=== PATIENT | male | born 1960 | race Caucasian/White ===

== ENCOUNTER 2023-02-24 09:47 | Inpatient (IN) | payer MEDICARE ==
[~2023-02-24] VITALS: Ht 170.2 cm; Wt 90.9 kg
[2023-02-24] MEDS ORDERED: ACET-897 PO (10:02)
[2023-02-24 11:12] LABS: BASO # 0.1 10^3/uL (0.0-0.2); BASO % 0.6 % (0.0-1.0); EOS # 0.2 10^3/uL (0.0-0.5); EOS % 2.7 % (0.0-3.0); HEMATOCRIT 29.5 % (42.0-52.0); HEMOGLOBIN 8.3 g/dl (13.5-17.5); LYMPH # 1.1 10^3/uL (1.5-5.0); LYMPH % 12.3 % (24.0-44.0); MEAN CORPUSCULAR HEMOGLOBIN 21.1 pg (27.0-33.0); MEAN CORPUSCULAR HGB CONC 28.1 g/dl (32.0-36.5); MEAN CORPUSCULAR VOLUME 75.1 fl (80.0-96.0); MONO # 0.5 10^3/uL (0.0-0.8); NEUTROPHILS # 6.8 10^3/uL (1.5-8.5); NEUTROPHILS % 78.2 % (36.0-66.0); PLATELET COUNT, AUTOMATED 349 10^3/uL (150-450); RED BLOOD COUNT 3.93 10^6/uL (4.30-6.10); WHITE BLOOD COUNT 8.6 10^3/uL (4.0-10.0)
[2023-02-24 11:20] LABS: ERYTHROCYTE SEDIMENTATION RATE > 130 mm/hr (0-20)
[2023-02-24] MEDS: POTASSIUM CHLORIDE 10MEQ SR TABLET PO ONE (11:26)
[2023-02-24] MEDS: KCL 10MEQ/100ML SWI (KRUN) 10 MEQ in IV 1 EA IV ONE (11:26)
[2023-02-24 11:28] LABS: INR 1.24; PROTHROMBIN TIME 15.2 SECONDS (12.5-14.5)
[2023-02-24 11:29] LABS: PARTIAL THROMBOPLASTIN TIME 32.4 SECONDS (24.8-34.2)
[2023-02-24 11:35] LABS: C REACTIVE PROTEIN QUANTITATIV 7.6 MG/DL (<1.0)
[2023-02-24 11:37] LABS: ALBUMIN 2.3 G/DL (3.2-5.2); BILIRUBIN,DIRECT 0.3 MG/DL (<0.4); BILIRUBIN,TOTAL 0.5 MG/DL (0.3-1.2); TOTAL PROTEIN 6.8 G/DL (5.7-8.2)
[2023-02-24 11:54] LABS: MAGNESIUM LEVEL 1.9 MG/DL (1.8-2.4)
[2023-02-24 11:56] LABS: RSV AMPLIFICATION NEGATIVE (NEGATIVE)
[2023-02-24] MEDS ORDERED: VANCOMYCIN HCL 1,750 MG in IV FLUID PLACE HOLDER 1 EA IV ONE (12:05)
[2023-02-24] MEDS: ONDANSETRON 4MG 2ML VIAL IV ONE (12:10)
[2023-02-24] MEDS: MORPHINE 4 MG/ML 1ML VIAL IV ONE ×2 (12:10→14:06)
[2023-02-24] MEDS ORDERED: MED REC IN PROGRESS XX SCH (12:30)
[2023-02-24] MEDS: VANCOMYCIN HCL 1,000 MG, VIAL MATE ADAPTER 1 EACH in D5W 250 ML IV ONE (12:51)
[2023-02-24] MEDS: LIDOCAINE 2% 5ML JELLY UROJET TOP ONE (13:46)
[2023-02-24] MEDS ORDERED: HOME MED LIST COMPLETE! XX SCH (13:55)
[2023-02-24] MEDS: VANCOMYCIN HCL 750 MG, VIAL MATE ADAPTER 1 EACH in D5W 250 ML IV ONE (13:55)
[2023-02-24] MEDS ORDERED: ISOVUE-370 76% 100ML VIAL As Ordered ONE (13:56)
[2023-02-24] MEDS ORDERED: HEPARIN SOD (PORCINE) 5000UNITS/ML 1ML VIAL/SYRINGE SC SCH (17:50)
[2023-02-24] MEDS ORDERED: MOM 30ML SUSPENSION UDC PO PRN (17:50)
[2023-02-24] MEDS ORDERED: MAALOX 30 ML SUSP *UDC PO PRN (17:50)
[2023-02-24] MEDS ORDERED: DEXTROSE 50% 50ML SYRINGE IV PRN (17:55)
[2023-02-24] MEDS ORDERED: GLUCOSE 4GM CHEW TABLET PO PRN (17:55)
[2023-02-24] MEDS ORDERED: GLUCAGON INJ 1MG VIAL SC PRN (17:55)
[2023-02-24 18:59] LABS: HEMOGLOBIN A1c 5.9 % (4.0-6.0)
[2023-02-24] MEDS: NS 1,000 ML IV ONE (19:13)
[2023-02-24 19:15] LABS: BLOOD UREA NITROGEN 10 MG/DL (9-23); CALCIUM LEVEL 7.9 MG/DL (8.3-10.6); CARBON DIOXIDE LEVEL 35 MMOL/L (20-31); CHLORIDE LEVEL 101 MMOL/L (98-107); CHOLESTEROL LEVEL 85 MG/DL (<200); CHOLESTEROL RISK RATIO 2.34 (<5); CREATININE FOR GFR 0.57 MG/DL (0.70-1.30); GLOMERULAR FILTRATION RATE > 60.0 (>49); GLUCOSE, FASTING 124 MG/DL (74-106); HDL CHOLESTEROL 36.2 MG/DL (>40); LDL CHOLESTEROL 35.2 MG/DL (<100); NON-HDL-C 48.8 MG/DL; POTASSIUM SERUM 2.8 MMOL/L (3.5-5.1); SODIUM LEVEL 141 MMOL/L (136-145); TRIGLYCERIDES LEVEL 68 MG/DL (<150)
[2023-02-24] MEDS: POTASSIUM CHLORIDE 10% LIQ 20MEQ/15ML UDC PO ONE (20:05)
[2023-02-24] MEDS: INSULIN LISPRO (NovoLOG) PER UNIT SC SCH (20:38)
[2023-02-24] MEDS: CEFEPIME HCL 2 GM in D5W MINI-BAG PLUS 50 ML IV SCH (20:39)
[2023-02-24] MEDS ORDERED: PROHANCE 279.3MG/ML 5ML VIAL As Ordered ONE (22:53)
[2023-02-24] MEDS ORDERED: PROHANCE 279.3MG/ML 15ML VIAL As Ordered ONE (22:53)
[2023-02-25] MEDS: KCL 10MEQ/100ML SWI (KRUN) 10 MEQ in IV 1 EA IV SCH (00:12)
[2023-02-25] MEDS: VANCOMYCIN HCL 750 MG, VIAL MATE ADAPTER 1 EACH in D5W 250 ML IV SCH ×2 (00:38→01:32)
[2023-02-25] MEDS: INSULIN LISPRO (NovoLOG) PER UNIT SC SCH (07:30)
[2023-02-25] MEDS: HEPARIN SOD (PORCINE) 5000UNITS/ML 1ML VIAL/SYRINGE SC SCH (07:40)
[2023-02-25 08:07] LABS: BASO # 0.1 10^3/uL (0.0-0.2); BASO % 0.5 % (0.0-1.0); EOS # 0.2 10^3/uL (0.0-0.5); EOS % 2.1 % (0.0-3.0); HEMATOCRIT 24.6 % (42.0-52.0); HEMOGLOBIN 7.1 g/dl (13.5-17.5); LYMPH # 1.5 10^3/uL (1.5-5.0); LYMPH % 13.7 % (24.0-44.0); MEAN CORPUSCULAR HEMOGLOBIN 21.6 pg (27.0-33.0); MEAN CORPUSCULAR HGB CONC 28.9 g/dl (32.0-36.5); MONO # 0.6 10^3/uL (0.0-0.8); MONO % 5.7 % (2.0-8.0); NEUTROPHILS # 8.6 10^3/uL (1.5-8.5); NEUTROPHILS % 77.6 % (36.0-66.0); PLATELET COUNT, AUTOMATED 319 10^3/uL (150-450); RED BLOOD COUNT 3.28 10^6/uL (4.30-6.10); WHITE BLOOD COUNT 11.1 10^3/uL (4.0-10.0)
[2023-02-25 08:33] LABS: BLOOD UREA NITROGEN 10 MG/DL (9-23); CALCIUM LEVEL 7.5 MG/DL (8.3-10.6); CARBON DIOXIDE LEVEL 33 MMOL/L (20-31); CHLORIDE LEVEL 101 MMOL/L (98-107); CREATININE FOR GFR 0.69 MG/DL (0.70-1.30); GLOMERULAR FILTRATION RATE > 60.0 (>49); GLUCOSE, FASTING 101 MG/DL (74-106); IRON (FE) 16 UG/DL (65-175); PERCENT SATURATION 5.7 % (19.7-50.0); POTASSIUM SERUM 3.3 MMOL/L (3.5-5.1); SODIUM LEVEL 138 MMOL/L (136-145); TOTAL IRON BINDING CAPACITY 282 UG/DL (250-425)
[2023-02-25 08:35] LABS: TOTAL 25(OH) VITAMIN D 21.3 NG/ML (20.0-100.0); VITAMIN B12 LEVEL 658 PG/ML (211-911)
[2023-02-25] MEDS: ACETAMINOPHEN TAB 650MG DOSE (2X325MG) PO PRN (08:55)
[2023-02-25] MEDS: PERCOCET 5MG/325MG TAB PO PRN (11:25)
[2023-02-25 15:35] VITALS: BP 148/94; TEMP 98.8; O2SAT 97
[2023-02-25] MEDS: MORPHINE 2 MG/ML 1ML VIAL IV PRN (16:57)
[2023-02-25 19:46] LABS: HEMATOCRIT 26.2 % (42.0-52.0); HEMOGLOBIN 7.4 g/dl (13.5-17.5)
[2023-02-25 20:53] VITALS: BP 133/89; TEMP 98.2; O2SAT 95
[2023-02-26] MEDS: HYDROMORPHONE HCL 0.5 MG/ 0.5 ML SYRINGE IV PRN (02:07)
[2023-02-26 06:21] VITALS: BP 143/81; TEMP 98.1; O2SAT 93
[2023-02-26 06:38] LABS: BASO # 0.1 10^3/uL (0.0-0.2); BASO % 1.3 % (0.0-1.0); EOS # 0.5 10^3/uL (0.0-0.5); EOS % 5.9 % (0.0-3.0); HEMATOCRIT 25.4 % (42.0-52.0); HEMOGLOBIN 7.3 g/dl (13.5-17.5); LYMPH # 2.2 10^3/uL (1.5-5.0); LYMPH % 28.3 % (24.0-44.0); MEAN CORPUSCULAR HEMOGLOBIN 21.8 pg (27.0-33.0); MEAN CORPUSCULAR HGB CONC 28.7 g/dl (32.0-36.5); MEAN CORPUSCULAR VOLUME 75.8 fl (80.0-96.0); MONO # 0.5 10^3/uL (0.0-0.8); NEUTROPHILS # 4.4 10^3/uL (1.5-8.5); NEUTROPHILS % 57.2 % (36.0-66.0); PLATELET COUNT, AUTOMATED 283 10^3/uL (150-450); RED BLOOD COUNT 3.35 10^6/uL (4.30-6.10); WHITE BLOOD COUNT 7.7 10^3/uL (4.0-10.0)
[2023-02-26 07:01] LABS: BLOOD UREA NITROGEN 19 MG/DL (9-23); CALCIUM LEVEL 7.3 MG/DL (8.3-10.6); CARBON DIOXIDE LEVEL 31 MMOL/L (20-31); CHLORIDE LEVEL 102 MMOL/L (98-107); CREATININE FOR GFR 0.81 MG/DL (0.70-1.30); GLOMERULAR FILTRATION RATE > 60.0 (>49); GLUCOSE, FASTING 92 MG/DL (74-106); MAGNESIUM LEVEL 1.9 MG/DL (1.8-2.4); POTASSIUM SERUM 3.8 MMOL/L (3.5-5.1); SODIUM LEVEL 137 MMOL/L (136-145)
[2023-02-26] MEDS: FERRIC CARBOXYMALTOSE INJ 750 MG, VIAL MATE ADAPTER 1 EACH in NS 250 ML IV ONE (08:45)
[2023-02-26] MEDS: SENOKOT S TAB PO SCH (08:49)
[2023-02-26 13:13] LABS: HEMATOCRIT 26.3 % (42.0-52.0); HEMOGLOBIN 7.5 g/dl (13.5-17.5)
[2023-02-26 14:00] VITALS: BP 137/90; TEMP 98.2; O2SAT 97
[2023-02-26] MEDS: FERROUS SULFATE 325MG TAB PO SCH (16:52)
[2023-02-26] MEDS: VANCOMYCIN HCL 1,000 MG, VIAL MATE ADAPTER 1 EACH in D5W 250 ML IV SCH (16:55)
[2023-02-26 18:30] VITALS: BP 158/102; TEMP 98.2; O2SAT 97
[2023-02-27 04:17] VITALS: BP 159/101; TEMP 97.9; O2SAT 97
[2023-02-27 06:33] LABS: BASO # 0.1 10^3/uL (0.0-0.2); EOS # 0.5 10^3/uL (0.0-0.5); EOS % 4.7 % (0.0-3.0); HEMATOCRIT 26.8 % (42.0-52.0); HEMOGLOBIN 7.7 g/dl (13.5-17.5); LYMPH # 2.4 10^3/uL (1.5-5.0); LYMPH % 23.3 % (24.0-44.0); MEAN CORPUSCULAR HEMOGLOBIN 21.4 pg (27.0-33.0); MEAN CORPUSCULAR HGB CONC 28.7 g/dl (32.0-36.5); MEAN CORPUSCULAR VOLUME 74.7 fl (80.0-96.0); MONO # 0.5 10^3/uL (0.0-0.8); MONO % 4.3 % (2.0-8.0); NEUTROPHILS # 6.9 10^3/uL (1.5-8.5); NEUTROPHILS % 65.9 % (36.0-66.0); PLATELET COUNT, AUTOMATED 355 10^3/uL (150-450); RED BLOOD COUNT 3.59 10^6/uL (4.30-6.10); WHITE BLOOD COUNT 10.4 10^3/uL (4.0-10.0)
[2023-02-27 06:55] LABS: BLOOD UREA NITROGEN 17 MG/DL (9-23); CALCIUM LEVEL 7.6 MG/DL (8.3-10.6); CARBON DIOXIDE LEVEL 32 MMOL/L (20-31); CHLORIDE LEVEL 103 MMOL/L (98-107); CREATININE FOR GFR 0.77 MG/DL (0.70-1.30); GLOMERULAR FILTRATION RATE > 60.0 (>49); GLUCOSE, FASTING 108 MG/DL (74-106); MAGNESIUM LEVEL 1.8 MG/DL (1.8-2.4); POTASSIUM SERUM 3.8 MMOL/L (3.5-5.1); SODIUM LEVEL 138 MMOL/L (136-145)
[2023-02-27] MEDS: amLODIPine 5 MG TAB PO SCH (09:23)
[2023-02-27 14:00] VITALS: BP 150/105; TEMP 98.4; O2SAT 98
[2023-02-27 21:20] VITALS: BP 136/78; TEMP 99; O2SAT 96
[2023-02-28] MEDS: MORPHINE 2 MG/ML 1ML VIAL IV PRN (02:32)
[2023-02-28 06:00] VITALS: BP 121/73; TEMP 97.9; O2SAT 96
[2023-02-28 06:01] LABS: BASO # 0.1 10^3/uL (0.0-0.2); EOS # 0.6 10^3/uL (0.0-0.5); EOS % 6.8 % (0.0-3.0); HEMATOCRIT 28.2 % (42.0-52.0); HEMOGLOBIN 8.2 g/dl (13.5-17.5); LYMPH # 1.3 10^3/uL (1.5-5.0); MEAN CORPUSCULAR HGB CONC 29.1 g/dl (32.0-36.5); MEAN CORPUSCULAR VOLUME 75.6 fl (80.0-96.0); MONO # 0.4 10^3/uL (0.0-0.8); MONO % 4.8 % (2.0-8.0); NEUTROPHILS # 6.6 10^3/uL (1.5-8.5); NEUTROPHILS % 72.1 % (36.0-66.0); PLATELET COUNT, AUTOMATED 340 10^3/uL (150-450); RED BLOOD COUNT 3.73 10^6/uL (4.30-6.10); WHITE BLOOD COUNT 9.1 10^3/uL (4.0-10.0)
[2023-02-28 06:26] LABS: BLOOD UREA NITROGEN 14 MG/DL (9-23); CALCIUM LEVEL 7.4 MG/DL (8.3-10.6); CARBON DIOXIDE LEVEL 32 MMOL/L (20-31); CHLORIDE LEVEL 102 MMOL/L (98-107); CREATININE FOR GFR 0.67 MG/DL (0.70-1.30); GLOMERULAR FILTRATION RATE > 60.0 (>49); GLUCOSE, FASTING 114 MG/DL (74-106); MAGNESIUM LEVEL 1.8 MG/DL (1.8-2.4); POTASSIUM SERUM 3.5 MMOL/L (3.5-5.1); SODIUM LEVEL 139 MMOL/L (136-145)
[2023-02-28 14:00] VITALS: BP 142/90; TEMP 98.1; O2SAT 91
[2023-02-28 19:00] VITALS: BP 141/89; TEMP 98.2; O2SAT 98
[2023-02-28 20:15] VITALS: BP 123/65; TEMP 98.1; O2SAT 98
[2023-03-01 04:12] VITALS: BP 140/84; TEMP 98.2; O2SAT 97
[2023-03-01 06:05] LABS: BASO # 0.1 10^3/uL (0.0-0.2); BASO % 0.8 % (0.0-1.0); EOS # 0.7 10^3/uL (0.0-0.5); EOS % 7.8 % (0.0-3.0); HEMATOCRIT 31.4 % (42.0-52.0); HEMOGLOBIN 8.9 g/dl (13.5-17.5); LYMPH # 1.3 10^3/uL (1.5-5.0); LYMPH % 15.7 % (24.0-44.0); MEAN CORPUSCULAR HEMOGLOBIN 22.1 pg (27.0-33.0); MEAN CORPUSCULAR HGB CONC 28.3 g/dl (32.0-36.5); MEAN CORPUSCULAR VOLUME 78.1 fl (80.0-96.0); MONO # 0.5 10^3/uL (0.0-0.8); MONO % 5.5 % (2.0-8.0); NEUTROPHILS # 5.9 10^3/uL (1.5-8.5); NEUTROPHILS % 69.3 % (36.0-66.0); PLATELET COUNT, AUTOMATED 358 10^3/uL (150-450); RED BLOOD COUNT 4.02 10^6/uL (4.30-6.10); WHITE BLOOD COUNT 8.5 10^3/uL (4.0-10.0)
[2023-03-01 06:39] LABS: BLOOD UREA NITROGEN 9 MG/DL (9-23); CALCIUM LEVEL 7.7 MG/DL (8.3-10.6); CARBON DIOXIDE LEVEL 35 MMOL/L (20-31); CHLORIDE LEVEL 104 MMOL/L (98-107); CREATININE FOR GFR 0.54 MG/DL (0.70-1.30); GLOMERULAR FILTRATION RATE > 60.0 (>49); GLUCOSE, FASTING 101 MG/DL (74-106); MAGNESIUM LEVEL 1.9 MG/DL (1.8-2.4); POTASSIUM SERUM 3.8 MMOL/L (3.5-5.1); SODIUM LEVEL 143 MMOL/L (136-145)
[2023-03-01] MEDS: BISACODYL 5MG TAB PO SCH (09:00)
[2023-03-01] MEDS: MAGNESIUM CITRATE 300ML BTL PO ONE (09:45)
[2023-03-01 14:00] VITALS: BP 131/77; TEMP 98.1; O2SAT 98
[2023-03-01 21:28] VITALS: BP 128/80; TEMP 98.4; O2SAT 99
[2023-03-02 05:58] VITALS: BP 153/98; TEMP 98.2; O2SAT 98
[2023-03-02 06:16] LABS: BASO # 0.1 10^3/uL (0.0-0.2); BASO % 0.6 % (0.0-1.0); EOS # 0.6 10^3/uL (0.0-0.5); EOS % 7.1 % (0.0-3.0); HEMATOCRIT 31.1 % (42.0-52.0); HEMOGLOBIN 8.8 g/dl (13.5-17.5); LYMPH # 1.5 10^3/uL (1.5-5.0); LYMPH % 18.4 % (24.0-44.0); MEAN CORPUSCULAR HEMOGLOBIN 22.1 pg (27.0-33.0); MEAN CORPUSCULAR HGB CONC 28.3 g/dl (32.0-36.5); MEAN CORPUSCULAR VOLUME 77.9 fl (80.0-96.0); MONO # 0.5 10^3/uL (0.0-0.8); MONO % 5.9 % (2.0-8.0); NEUTROPHILS # 5.5 10^3/uL (1.5-8.5); NEUTROPHILS % 67.4 % (36.0-66.0); PLATELET COUNT, AUTOMATED 331 10^3/uL (150-450); RED BLOOD COUNT 3.99 10^6/uL (4.30-6.10); WHITE BLOOD COUNT 8.1 10^3/uL (4.0-10.0)
[2023-03-02 06:42] LABS: BLOOD UREA NITROGEN 8 MG/DL (9-23); CALCIUM LEVEL 7.6 MG/DL (8.3-10.6); CARBON DIOXIDE LEVEL 36 MMOL/L (20-31); CHLORIDE LEVEL 104 MMOL/L (98-107); CREATININE FOR GFR 0.64 MG/DL (0.70-1.30); GLOMERULAR FILTRATION RATE > 60.0 (>49); GLUCOSE, FASTING 100 MG/DL (74-106); POTASSIUM SERUM 3.8 MMOL/L (3.5-5.1); SODIUM LEVEL 143 MMOL/L (136-145)
[2023-03-02 14:00] VITALS: BP 138/84; TEMP 98.6; O2SAT 98
[2023-03-02 21:04] VITALS: BP 139/85; TEMP 98.2; O2SAT 99
[2023-03-02] MEDS: HYDROMORPHONE HCL 0.5 MG/ 0.5 ML SYRINGE IV PRN (21:50)
[2023-03-03 04:52] VITALS: BP 137/76; TEMP 98.8; O2SAT 100
[2023-03-03 14:00] VITALS: BP 149/90; TEMP 98.2; O2SAT 97
[2023-03-03 14:12] LABS: CHLAMYDIA DNA AMPLIFICATION NEGATIVE (NEGATIVE); GC DNA AMPLIFICATION NEGATIVE (NEGATIVE)
[2023-03-03 20:40] VITALS: BP 100/69; TEMP 98.1; O2SAT 97
[2023-03-04 06:00] VITALS: BP 128/78; TEMP 97.9; O2SAT 96
[2023-03-04 06:06] LABS: BASO % 0.5 % (0.0-1.0); EOS # 0.6 10^3/uL (0.0-0.5); EOS % 7.8 % (0.0-3.0); HEMATOCRIT 31.4 % (42.0-52.0); HEMOGLOBIN 8.8 g/dl (13.5-17.5); LYMPH # 1.5 10^3/uL (1.5-5.0); LYMPH % 18.3 % (24.0-44.0); MEAN CORPUSCULAR HEMOGLOBIN 22.4 pg (27.0-33.0); MEAN CORPUSCULAR VOLUME 79.9 fl (80.0-96.0); MONO # 0.6 10^3/uL (0.0-0.8); MONO % 6.8 % (2.0-8.0); NEUTROPHILS # 5.4 10^3/uL (1.5-8.5); NEUTROPHILS % 66.1 % (36.0-66.0); PLATELET COUNT, AUTOMATED 299 10^3/uL (150-450); RED BLOOD COUNT 3.93 10^6/uL (4.30-6.10); WHITE BLOOD COUNT 8.1 10^3/uL (4.0-10.0)
[2023-03-04 06:36] LABS: BLOOD UREA NITROGEN 12 MG/DL (9-23); CALCIUM LEVEL 7.7 MG/DL (8.3-10.6); CARBON DIOXIDE LEVEL 35 MMOL/L (20-31); CHLORIDE LEVEL 105 MMOL/L (98-107); GLOMERULAR FILTRATION RATE > 60.0 (>49); GLUCOSE, FASTING 90 MG/DL (74-106); POTASSIUM SERUM 4.4 MMOL/L (3.5-5.1); SODIUM LEVEL 140 MMOL/L (136-145)
[2023-03-04 14:00] VITALS: BP 124/80; TEMP 99.6; O2SAT 97
[2023-03-04] MEDS ORDERED: CALCIUM CARBONATE 500 MG CHEW U/D PO PRN (14:55)
[2023-03-04] MEDS: diphenhydrAMINE 25MG CAP PO ONE (20:33)
[2023-03-04] MEDS: LevoFLOXacin 750 MG TABLET PO SCH (20:33)
[2023-03-04] MEDS: DOXYCYCLINE HYCLATE 100MG TABLET PO SCH (20:33)
[2023-03-05 06:00] VITALS: BP 133/73; TEMP 98.6; O2SAT 96
[2023-03-05] MEDS: diphenhydrAMINE 25MG CAP PO ONE (22:01)
[2023-03-06 05:15] VITALS: BP 119/74; TEMP 98.8; O2SAT 97
[2023-03-07 05:12] VITALS: BP 120/70; TEMP 98.6; O2SAT 97
[2023-03-08 06:00] VITALS: BP 120/81; TEMP 98.1; O2SAT 98
[2023-03-09 06:00] VITALS: BP 117/74; TEMP 98.1; O2SAT 98
[2023-03-10 06:00] VITALS: BP 110/65; TEMP 98.2; O2SAT 97
[2023-03-11 05:31] VITALS: BP 108/62; TEMP 98.6; O2SAT 97
[2023-03-12 06:00] VITALS: BP 125/73; TEMP 98.2; O2SAT 99
[2023-03-13 05:41] VITALS: BP 108/67; TEMP 98.4; O2SAT 98
[2023-03-14 06:10] VITALS: BP 101/63; TEMP 98.2; O2SAT 97
[2023-03-15 04:44] VITALS: BP 105/67; TEMP 98.8; O2SAT 98
[2023-03-16 05:20] VITALS: BP 110/67; TEMP 98.1; O2SAT 99
[2023-03-17 05:56] VITALS: BP 107/68; TEMP 98.1; O2SAT 98
[2023-03-17] MEDS ORDERED: ARTIFICIAL TEARS DROPS 15ML BTL (VISINE DRY RELIEF) OU PRN (23:05)
[2023-03-18 05:52] VITALS: BP 109/70; TEMP 98.6; O2SAT 99
[2023-03-19 06:00] VITALS: BP 103/61; TEMP 98.1; O2SAT 98
[2023-03-20 05:43] VITALS: BP 94/52; TEMP 97.9; O2SAT 97
[2023-03-20 08:23] VITALS: BP 123/84
[2023-03-20] MEDS ORDERED: ACET1TAB55 PO (15:14)
[2023-03-20] MEDS ORDERED: SENN-52 PO (15:14)
[2023-03-20] MEDS ORDERED: FERR1TAB8 PO (15:14)
[2023-03-20] MEDS ORDERED: AMLO1TAB24 PO (15:14)
[2023-03-20] MEDS ORDERED: CALC200T15 PO (15:14)
[2023-03-20] MEDS ORDERED: INSUHUMDS SC ×2 (15:14)
[2023-03-20] MEDS ORDERED: BISAC5TA PO (15:14)
== END 2023-03-20 15:41 | disposition left against medical advice (07) | DRG 623 ==
LOC: EDBD 09:47 → M ED 09:47 → M ED INP 17:47 → ENRESERV 02-25 14:57 → M MSPAV 02-25 15:50
PROVIDERS: ADMIT Student in an Organized Health Care Education/Training Program; ATTEND General Practice
PROC: 0T9B80Z Drainage of Bladder with Drainage Device, Via Natural or Artificial Opening Endoscopic (ICD-10-PCS; 2023-02-24)
PROC: 0JBP0ZZ Excision of Left Lower Leg Subcutaneous Tissue and Fascia, Open Approach (ICD-10-PCS; principal; 2023-02-25)
PROC: 0JBN0ZZ Excision of Right Lower Leg Subcutaneous Tissue and Fascia, Open Approach (ICD-10-PCS; 2023-02-25)
DX: E11.622 Type 2 diabetes mellitus with other skin ulcer (principal); L97.919 Non-pressure chronic ulcer of unspecified part of right lower leg with unspecified severity; L97.929 Non-pressure chronic ulcer of unspecified part of left lower leg with unspecified severity; L03.115 Cellulitis of right lower limb; S52.501A Unspecified fracture of the lower end of right radius, initial encounter for closed fracture; L03.116 Cellulitis of left lower limb; I10 Essential (primary) hypertension; F43.0 Acute stress reaction; E87.6 Hypokalemia; D50.9 Iron deficiency anemia, unspecified; R33.9 Retention of urine, unspecified; N35.912 Unspecified bulbous urethral stricture, male; N36.5 Urethral false passage; D63.8 Anemia in other chronic diseases classified elsewhere; X58.XXXA Exposure to other specified factors, initial encounter; Y92.9 Unspecified place or not applicable; Z88.0 Allergy status to penicillin; Z20.822 Contact with and (suspected) exposure to COVID-19